=== PATIENT | male | born 1965 | race African-American/Black ===

== ENCOUNTER 2025-03-21 19:35 | Emergency (ER) | payer OTHER ==
[~2025-03-21] VITALS: Ht 188 cm; Wt 204.0 kg
[2025-03-21 19:43] VITALS: O2SAT 96
[2025-03-21 21:24] LABS: CLARITY URINE CLEAR (CLEAR); COLOR URINE ORANGE (YELLOW); GLUCOSE URINE NEGATIVE (NEGATIVE); KETONES URINE NEGATIVE (NEGATIVE); LEUKOCYTE ESTERASE URINE 1+ (NEGATIVE); NITRITE URINE NEGATIVE (NEGATIVE); OCCULT BLOOD URINE 3+ (NEGATIVE); PH URINE 7.0 (4.5-8.0); PROTEIN URINE 2+ (NEGATIVE); SPECIFIC GRAVITY URINE 1.009 (1.005-1.030); UROBILINOGEN URINE 2.0 E.U./dL (0.2-1.0)
[2025-03-21 21:32] LABS: SQUAMOUS EPITHELIAL CELL URINE RARE /lpf (RARE/1+)
[2025-03-21 21:33] LABS: BACTERIA URINE 1+
[2025-03-21 22:51] LABS: BASOPHILS % 1.3 % (0.0-2.0); EOSINOPHILS % 0.6 % (0.0-5.0); HEMATOCRIT. 38.8 % (42.0-52.0); HEMOGLOBIN. 12.7 g/dL (14.0-18.0); LYMPHOCYTES % 16.9 % (20.0-50.0); MEAN PLATELET VOLUME 8.6 fl (7.4-10.4); MONOCYTES % 7.4 % (2.0-8.0); NEUTROPHILS % 73.8 % (40.0-76.0); PLATELET 202 x1000/uL (130-400); RED BLOOD CELL COUNT 4.31 mill/uL (4.7-6.1); RED CELL DISTRIBUTION WIDTH 14.7 % (11.6-14.6)
[2025-03-21 23:05] LABS: CREATININE 0.9 mg/dL (0.6-1.3)
[2025-03-21 23:06] LABS: UREA NITROGEN BLOOD 8 mg/dL (9-23)
[2025-03-21] MEDS ORDERED: SULF1TAB48 MT (23:13)
[2025-03-21] MEDS: POTASSIUM CHLORIDE 20MEQ/PACKET PO ONE (23:37)
[2025-03-21] MEDS: SULFAMETHOXAZOLE/TRIMETHOPRIM 800/160MG TABLET PO ONE (23:37)
[2025-03-22 01:47] VITALS: BP 147/90; PULSE 88; RESP 14; TEMP 37.2; O2SAT 98
== END 2025-03-22 02:05 | disposition home or self-care (01) ==
LOC: ER 19:35
DX: N39.0 Urinary tract infection, site not specified (principal); I10 Essential (primary) hypertension
CPT/HCPCS: 80048; 81003; 85025; 36415; 99283; Z7610